=== PATIENT | female | born 1955 | race Caucasian/White ===

== ENCOUNTER 2016-08-20 10:42 | Outpatient (CLI) | payer OTHER | END 2016-08-20 10:43 | disposition home or self-care (01) | DX: G93.2 Benign intracranial hypertension (principal); I10 Essential (primary) hypertension; E03.9 Hypothyroidism, unspecified ==

== ENCOUNTER 2016-11-05 10:28 | Outpatient (CLI) | payer OTHER | END 2016-11-05 10:29 | disposition home or self-care (01) | DX: Z12.31 Encounter for screening mammogram for malignant neoplasm of breast (principal); Z80.3 Family history of malignant neoplasm of breast ==

== ENCOUNTER 2017-02-05 14:07 | Outpatient (CLI) | payer OTHER | END 2017-02-05 14:08 | disposition home or self-care (01) | LOC: LAB 14:07 | PROVIDERS: ATTEND Internal Medicine | DX: Z01.818 Encounter for other preprocedural examination (principal) | CPT/HCPCS: 87640 ==

== ENCOUNTER 2017-11-12 13:52 | Outpatient (CLI) | payer OTHER ==
--- NOTE | 2017-11-13 11:55 | Mammography Report ---
SCREENING MAMMOGRAM: 11/12/2017 HISTORY: Bilateral reduction mammoplasty. COMPARISON: 11/05/2016, 02/27/2014, 02/14/2013, 01/05/2012, 12/04/2010 and 07/18/2009. TECHNIQUE: Bilateral digital CC and MLO projections. FINDINGS: There are scattered fibroglandular densities. No dominant mass, suspicious microcalcifications, skin thickening, new architectural distortion. Stable compared with priors. IMPRESSION: NEGATIVE. BIRADS CATEGORY 1. RECOMMENDATION: Suggest return to routine screening in 12 months. STANDARD QUALIFYING STATEMENTS: 1. This examination was reviewed with the aid of Computer-Aided Detection (CAD). 2. A negative or benign imaging report should not delay biopsy if clinically suspicious findings are present. Consider surgical consultation if warranted. More than 5% of cancers are not identified by imaging. 3. Dense breasts may obscure an underlying neoplasm. TD: 11/13/2017 10:37
== END 2017-11-12 13:53 | disposition home or self-care (01) ==
LOC: DI 13:52
PROVIDERS: ATTEND Internal Medicine
DX: Z12.31 Encounter for screening mammogram for malignant neoplasm of breast (principal)
CPT/HCPCS: 77067

== ENCOUNTER 2017-11-25 09:19 | Outpatient (CLI) | payer OTHER | END 2017-11-25 09:20 | disposition home or self-care (01) | LOC: DI 09:19 | PROVIDERS: ATTEND Internal Medicine | DX: I48.91 Unspecified atrial fibrillation (principal) | CPT/HCPCS: 93306 ==

== ENCOUNTER 2018-01-20 11:32 | Outpatient (CLI) | payer OTHER ==
--- NOTE | 2018-01-20 12:19 | XRAY Report ---
Procedure Date: 01/20/2018 Accession Number: [id number] / [id number] Procedure: XR - Hip w/Pelvis 2-3V RT CPT Code: FULL RESULT: EXAM: RIGHT HIP AND PELVIS RADIOGRAPHY EXAM DATE: 01/20/2018 11:45 AM. HISTORY: HIP PAIN. COMPARISONS: None. TECHNIQUE: 1 view of the pelvis and 1 view of the hip. FINDINGS: Bones: No fractures or bone lesions. Bones appear osteopenic. Joints: Lower lumbar spinal degeneration. SI joints and pubic symphysis are unremarkable. 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 Soft Tissues: Unremarkable. IMPRESSION: 1. No acute osseous abnormality. 2. DJD. Osteopenia. RADIA
== END 2018-01-20 11:33 | disposition home or self-care (01) ==
LOC: DI 11:32
PROVIDERS: ATTEND Internal Medicine
DX: M16.0 Bilateral primary osteoarthritis of hip (principal); M85.88 Other specified disorders of bone density and structure, other site

== ENCOUNTER 2018-01-25 14:46 | Outpatient (CLI) | payer OTHER ==
--- NOTE | 2018-01-25 17:07 | DEXA Report ---
Procedure Date: 01/25/2018 Accession Number: [id number] / [id number] Procedure: DEX - Dexa Spine and/or Hip CPT Code: FULL RESULT: EXAM: DUAL EMISSION X-RAY ABSORPTIOMETRY (DXA) SCAN EXAM DATE: 01/25/2018 03:15 PM. CLINICAL HISTORY: Hypothyroidism. Steroid use. Postmenopausal. COMPARISON: None. ADDITIONAL PATIENT INFORMATION: None. TECHNIQUE: Dual energy x-ray absorptiometry (DXA) was performed on a [employer] System. Regions measured at the AP spine, femoral neck, and if needed, forearm. TECHNIQUE LIMITATIONS/EXCLUSIONS: None. FINDINGS: Lumbar Spine: L1-L3 - Bone mineral density 1.007 g/sq cm, T-score -1.4, Z-score -0.3. Femoral Neck: Bone mineral density 0.818 g/sq cm, T-score -1.6, Z-score -0.2. Total Hip: Bone mineral density 0.808 g/sq cm, T-score -1.6, Z-score -0.5. IMPRESSION: Osteopenia. The fracture risk is increased. World Health Organization (WHO) Reporting guidelines (based on lowest BMD) for postmenopausal and perimenopausal women, men age 50 years and older: Normal: T-score at or greater than -1.0 Osteopenia: T-score between -1.1 to -2.4 Osteoporosis: T-score at or less than -2.5 RADIA
== END 2018-01-25 14:47 | disposition home or self-care (01) ==
LOC: DI 14:46
PROVIDERS: ATTEND Internal Medicine
DX: M85.89 Other specified disorders of bone density and structure, multiple sites (principal)
CPT/HCPCS: 77080

== ENCOUNTER 2018-07-22 13:56 | Outpatient (CLI) | payer OTHER | END 2018-07-22 13:57 | disposition home or self-care (01) | LOC: LAB 13:56 | PROVIDERS: ATTEND Internal Medicine | DX: Z01.812 Encounter for preprocedural laboratory examination (principal) | CPT/HCPCS: 87640 ==

== ENCOUNTER 2019-04-21 13:46 | Outpatient (CLI) | payer OTHER ==
--- NOTE | 2019-04-22 13:14 | Mammography Report ---
Reason: ROUTINE MAMMO Procedure Date: 04/21/2019 Accession Number: [id number] / [id number] Procedure: [place] - Screening Mammo w/Lisandro CPT Code: Final Report FULL RESULT: EXAM: Screening Mammo w/Lisandro DATE: 04/21/2019 2:09 PM CLINICAL HISTORY: Routine screening. Prior history of breast reduction. Family history breast cancer sister age 65, maternal grandmother age 48 and paternal aunt age 80. TECHNIQUE: (B) - Bilateral CC and MLO views were obtained. COMPARISON: 11/12/2017 through 02/27/2014. PARENCHYMAL PATTERN: (A) - The breasts demonstrate scattered fibroglandular densities bilaterally. FINDINGS: Bilateral breasts: Stable reduction mammoplasty changes. There are no suspicious masses, calcifications, or areas of distortion. IMPRESSION: Benign findings. BI-RADS category 2. RECOMMENDATION: (ANNUAL) - Recommend routine annual screening mammography. BI-RADS CATEGORY: (2) - Benign Findings. STANDARD QUALIFYING STATEMENTS: 1. This examination was not reviewed with the aid of Computer-Aided Detection (CAD). 2. A negative or benign imaging report should not preclude biopsy if clinically suspicious findings are present. 3. Dense breasts may obscure an underlying neoplasm. 4. This examination was reviewed with the aid of 3D breast imaging (tomosynthesis).
== END 2019-04-21 13:47 | disposition home or self-care (01) ==
LOC: DI 13:46
PROVIDERS: ATTEND Internal Medicine
DX: Z12.31 Encounter for screening mammogram for malignant neoplasm of breast (principal); Z80.3 Family history of malignant neoplasm of breast
CPT/HCPCS: 77063; 77067

== ENCOUNTER 2021-08-13 12:46 | Outpatient (CLI) | payer OTHER ==
--- NOTE | 2021-08-14 07:17 | Mammography Report ---
BILATERAL DIGITAL SCREENING MAMMOGRAM 3D/2D: 08/13/2021 CLINICAL: Family history of breast cancer. Routine screening. Comparison is made to exams dated: 04/21/2019 mammogram, 11/12/2017 mammogram, 11/05/2016 mammogram, mammogram, and 02/14/2013 mammogram - [facility]. The tissue of both breasts is heterogeneously dense. This may lower the sensitivity of mammography. No significant masses, calcifications, or other findings are seen in either breast. There has been no significant interval change. IMPRESSION: NEGATIVE There is no mammographic evidence of malignancy. A 1 year screening mammogram is recommended. This exam was interpreted at Station ID: [id number]. NOTE: For mammograms, a report in lay terms will be sent to the patient. Approximately 15% of breast malignancies will not be visualized mammographically. In the management of a palpable breast mass, a negative mammogram must not discourage biopsy of a clinically suspicious lesion. Electronically Signed By: Christophe Nicole M.D. [facility] [email or web address]:08/13/2021 14:32:15 ACR BI-RADS Category 1: Negative 3341F PARENCHYMAL PATTERN: (D) - The breast(s) demonstrate(s) heterogeneously dense fibroglandular [place]. BI-RADS CATEGORY: (1) - 1 RECOMMENDATION: (ANNUAL) - Recommend routine annual screening mammography. [id number] 1 year screening LATERALITY: (B)
== END 2021-08-13 12:47 | disposition home or self-care (01) ==
LOC: DI.N 12:46
PROVIDERS: ATTEND Internal Medicine
DX: Z12.31 Encounter for screening mammogram for malignant neoplasm of breast (principal); Z80.3 Family history of malignant neoplasm of breast

== ENCOUNTER 2022-04-21 08:00 | Outpatient (CLI) | payer OTHER ==
[2022-04-21 15:58] LABS: BASOPHILS # (AUTO) 0.1 10^3/uL (0.0-0.1); BASOPHILS % (AUTO) 1.4 %; EOSINOPHILS # (AUTO) 0.1 10^3/uL (0.0-0.7); EOSINOPHILS % (AUTO) 1.9 %; HCT - HEMATOCRIT 43.7 % (37.0-47.0); HGB - HEMOGLOBIN 14.8 g/dL (12.0-16.0); LYMPHOCYTES % (AUTO) 33.6 %; MEAN CORPUSCULAR HEMOGLOBIN 32.4 pg (27.0-31.0); MEAN CORPUSCULAR HGB CONC 33.9 g/dL (32.0-36.0); MEAN CORPUSCULAR VOLUME 95.6 fL (81.0-99.0); MONOCYTES # (AUTO) 0.6 10^3/uL (0.0-1.0); MONOCYTES % (AUTO) 10.2 %; NEUTROPHILS # (AUTO) 3.1 10^3/uL (1.5-6.6); NEUTROPHILS % (AUTO) 52.7 %; PLT - PLATELET COUNT 362 10^3/uL (130-450); RED BLOOD COUNT 4.57 10^6/uL (4.20-5.40); RED CELL DISTRIBUTION WIDTH 12.9 % (12.0-15.0); WHITE BLOOD COUNT 5.9 x10^3/uL (4.8-10.8)
[2022-04-21 16:13] LABS: ALBUMIN 4.8 g/dL (3.2-5.5); ALBUMIN/GLOBULIN RATIO 1.4 (1.0-2.2); ALKALINE PHOSPHATASE 51 IU/L (42-121); ALT ALANINE AMINOTRANSFERASE 21 IU/L (10-60); AST ASPARTATE AMINOTRANSFERASE 32 IU/L (10-42); BILIRUBIN,TOTAL 0.9 mg/dL (0.2-1.0); BUN - BLOOD UREA NITROGEN 15 mg/dL (6-20); CARBON DIOXIDE - CO2 30 mmol/L (21-32); CHLORIDE 97 mmol/L (101-111); CHOL/HDL RATIO 1.8 (<4.4); CHOLESTEROL 185 mg/dL; CREATININE 0.6 mg/dL (0.4-1.0); GFR - MDRD 100 (>89); GLUCOSE 86 mg/dL (70-100); HDL CHOLESTEROL 102 mg/dL; LDL CHOLESTEROL,CALCULATED 72 mg/dL; LDL/HDL RATIO 0.7 (<4.4); POTASSIUM 3.7 mmol/L (3.5-5.0); SODIUM 137 mmol/L (135-145); TOTAL PROTEIN 8.2 g/dL (6.7-8.2); TRIGLYCERIDES 53 mg/dL; VLDL CHOLESTEROL 11 mg/dL
== END 2022-04-21 23:59 | disposition home or self-care (01) ==
LOC: LAB.R 08:00
PROVIDERS: ATTEND Internal Medicine
DX: Z00.00 Encounter for general adult medical examination without abnormal findings (principal); C44.90 Unspecified malignant neoplasm of skin, unspecified; I10 Essential (primary) hypertension; I48.91 Unspecified atrial fibrillation; E03.9 Hypothyroidism, unspecified; M85.80 Other specified disorders of bone density and structure, unspecified site
CPT/HCPCS: 80053; 80061; 83721; 84443; 85025

== ENCOUNTER 2023-05-04 09:19 | Outpatient (CLI) | payer MEDICARE ==
--- NOTE | 2023-05-05 13:07 | Mammography Report ---
BILATERAL DIGITAL SCREENING MAMMOGRAM 3D/2D: 05/04/2023 CLINICAL: Routine screening. Comparison is made to exams dated: 08/13/2021 mammogram, 04/21/2019 mammogram, and 11/12/2017 mammogram - [facility]. There are scattered areas of fibroglandular density in both breasts (category b / 25%-50% glandular t issue). No significant masses, calcifications, or other findings are seen in either breast. There has been no significant interval change. IMPRESSION: NEGATIVE There is no mammographic evidence of malignancy. A 1 year screening mammogram is recommended. Based on the Tyrer Cuzick model (a risk assessment model) the patients lifetime risk is 11.3% and he r 10 year risk is 5.7%. According to the ACR, ACS, and NCCN guidelines, an annual breast MRI exam deborah ng with mammogram is recommended if the patients lifetime risk is 20% or greater. This exam was interpreted at Station ID: [id number]. NOTE: For mammograms, a report in lay terms will be sent to the patient. Approximately 15% of breast malignancies will not be visualized mammographically. In the management of a palpable breast mass, a negative mammogram must not discourage biopsy of a clinically suspicious lesion. Electronically Signed By: Bashir [email or web address]/agnes:05/04/2023 15:16:28 letter sent: No_Letter ACR BI-RADS Category 1: Negative 3341F PARENCHYMAL PATTERN: (A) - The breast(s) demonstrate(s) scattered fibroglandular densities. BI-RADS CATEGORY: (1) - 1 Mammogram [id number] 1 year screening LATERALITY: (B)
== END 2023-05-04 09:20 | disposition home or self-care (01) ==
LOC: DI 09:19
PROVIDERS: ATTEND Internal Medicine
DX: Z12.31 Encounter for screening mammogram for malignant neoplasm of breast (principal); R92.323 Mammographic fibroglandular density, bilateral breasts